=== PATIENT | male | born 1995 | race African-American/Black ===

== ENCOUNTER 2018-09-13 17:58 | Emergency (ER) | payer OTHER ==
[2018-09-13 18:02] VITALS: BP 124/81
== END 2018-09-13 20:23 | disposition left against medical advice (07) ==
LOC: ED 17:58
DX: R51 Headache (principal); Z53.21 Procedure and treatment not carried out due to patient leaving prior to being seen by health care provider

== ENCOUNTER 2019-01-20 19:51 | Emergency (ER) | payer OTHER ==
[2019-01-20 20:50] LABS: ABS Basophils 0.1 10^3/ul (0-0.2); ABS Eosinophils 0.1 10^3/ul (0-0.6); ABS Lymphocytes 2.5 10^3/ul (1.0-4.8); Eosinophil % 1.5 %; Hematocrit 46 % (42-52); Hemoglobin 15.1 g/dL (14.0-18.0); Lymphocyte % 28.7 %; Mean Corpuscular HGB Conc 33 g/dL (31-36); Mean Corpuscular Hemoglobin 27 pg (27-31); Mean Corpuscular Volume 84 fL (80-94); Mean Platelet Volume 8.5 fL (7.4-10.4); Nucleated Red Blood Cells % 0.1; Platelet Count 247 10^3/uL (150-450); Red Blood Count 5.53 10^6 /uL (4.18-5.48); Red Cell Distribution Width 14 % (10-15); White Blood Count 8.7 10^3/uL (3.5-10.8)
[2019-01-20 21:08] LABS: Albumin 4.1 g/dL (3.2-5.2); Albumin/Globulin Ratio 1.3 (1-3); BUN/Creatinine Ratio 16.8 (8-20); Calcium 9.3 mg/dL (8.6-10.3); EGFR African American 104.6 (>60); EGFR Non-African American 86.4 (>60); Globulin 3.1 g/dL (2-4); Potassium 4.3 mmol/L (3.5-5.0); Total Bilirubin 0.5 mg/dL (0.2-1.0); Total Protein 7.2 g/dL (6.4-8.9)
[2019-01-20] MEDS ORDERED: Sulfamethox/Trimethoprim DS 800/160* TAB PO ONE (22:30)
[2019-01-20] MEDS ORDERED: Ibuprofen TAB* 600 MG PO ONE (22:30)
--- NOTE | 2019-01-20 22:33 | ED ---
GI/ HPI - HPI Summary HPI Summary: This patient is a 23 year old M presenting to ED with a chief complaint of pain in groin since 2 days ago. The pain is described as burning. The patient rates the pain 10/10 in severity. Symptoms aggravated by nothing. Symptoms alleviated by Ibuprofen. Patient denies penile discharge, fever. - History of Current Complaint Chief Complaint: EDUrogenitalProblems Stated Complaint: PELVIS AREA PAIN PER PT Hx Obtained From: Patient Onset/Duration: Started Days Ago - 2 days ago, Still Present Timing: Constant, Lasting Days Severity: Severe Current Severity: Severe Pain Intensity: 10 Location of Pain: Groin Additional Locations for Males: Penis Pain Characteristics: Burning Associated Signs and Symptoms: Negative: Discharge, Fever Additional Signs & Symptoms: Negative: Penile Discharge Aggravating Factor(s): Nothing Alleviating Factor(s): Medication - Ibuprofen - Allergy/Home Medications Allergies/Adverse Reactions: Allergies Allergy/AdvReac Type Severity Reaction Status Date / Time No Known Allergies Allergy Verified 01/20/19 20:06 PMH/Surg Hx/FS Hx/Imm Hx Endocrine/Hematology History: Denies: Hx Diabetes Cardiovascular History: Denies: Hx Hypertension - Surgical History Surgery Procedure, Year, and Place: Denies Infectious Disease History: No Infectious Disease History: Denies: Traveled Outside the [place] in Last 30 Days - Family History Known Family History: Positive: Diabetes - Social History Alcohol Use: None Hx Substance Use: No Substance Use Type: Reports: Marijuana Hx Tobacco Use: No Smoking Status (MU): Never Smoked Tobacco Review of Systems Negative: Fever Positive: Abdominal Pain - Pelvic region Negative: discharge All Other Systems Reviewed And Are Negative: Yes Physical Exam - Summary Physical Exam Summary: Appearance: Well appearing, no pain distress Skin: warm, dry, reflects adequate perfusion Head/face: normal Eyes: EOMI, SHARIFA ENT: normal Neck: supple, non-tender Respiratory: CTA, breath sounds present Cardiovascular: RRR, pulses symmetrical Abdomen: tenderness and swelling over right pelvic area, no fluctuation, [id number] induration Musculoskeletal: normal, strength/ROM intact Neuro: normal, sensory motor intact, A&Ox3 Triage Information Reviewed: Yes Vital Signs On Initial Exam: Initial Vitals Temp Pulse Resp BP Pulse Ox 97.8 F 61 16 138/96 99 01/20/19 20:05 01/20/19 20:05 01/20/19 20:05 01/20/19 20:05 01/20/19 20:05 Vital Signs Reviewed: Yes Diagnostics - Vital Signs Vital Signs Temp Pulse Resp BP Pulse Ox 01/20/19 20:05 97.8 F 61 16 138/96 99 - Laboratory Lab Results: Lab Results 01/20/19 01/20/19 Range/Units 20:46 20:46 WBC 8.7 (3.5-10.8) 10^3/uL RBC 5.53 H (4.18-5.48) 10^6 /uL Hgb 15.1 (14.0-18.0) g/dL Hct 46 (42-52) % MCV 84 (80-94) fL MCH 27 (27-31) pg MCHC 33 (31-36) g/dL RDW 14 (10-15) % Plt Count 247 (150-450) 10^3/uL MPV 8.5 (7.4-10.4) fL Neut % (Auto) 57.0 % Lymph % (Auto) 28.7 % [place] % (Auto) 12.0 % Eos % (Auto) 1.5 % Baso % (Auto) 0.8 % Absolute Neuts (auto) 5.0 (1.5-7.7) 10^3/ul Absolute Lymphs (auto) 2.5 (1.0-4.8) 10^3/ul Absolute Monos (auto) 1.0 H (0-0.8) 10^3/ul Absolute Eos (auto) 0.1 (0-0.6) 10^3/ul Absolute Basos (auto) 0.1 (0-0.2) 10^3/ul Absolute Nucleated RBC 0.0 10^3/ul Nucleated RBC % 0.1 Sodium 142 (135-145) mmol/L Potassium 4.3 (3.5-5.0) mmol/L Chloride 109 (101-111) mmol/L Carbon Dioxide 29 (22-32) mmol/L Anion Gap 4 (2-11) mmol/L BUN 18 (6-24) mg/dL Creatinine 1.07 (0.67-1.17) mg/dL Est GFR ( Amer) 104.6 (>60) Est GFR (Non-Af Amer) 86.4 (>60) BUN/Creatinine Ratio 16.8 (8-20) Glucose 102 H (70-100) mg/dL Calcium 9.3 (8.6-10.3) mg/dL Total Bilirubin 0.50 (0.2-1.0) mg/dL AST 13 (13-39) U/L ALT 9 (7-52) U/L Alkaline Phosphatase 52 (34-104) U/L Total Protein 7.2 (6.4-8.9) g/dL Albumin 4.1 (3.2-5.2) g/dL Globulin 3.1 (2-4) g/dL Albumin/Globulin Ratio 1.3 (1-3) Lipase 22 (11.0-82.0) U/L Result Diagrams: 01/20/19 20:46 01/20/19 20:46 Lab Statement: Any lab studies that have been ordered have been reviewed, and results considered in the medical decision making process. GIGU Course/Dx - Course Course Of Treatment: This patient is a 23 year old M presenting to ED with a chief complaint of pain in groin since 2 days ago. In the ED course, patient received Motrin and Bactrim. Patient will be discharged with dx of folliculitis. Patient understands and agrees with this plan. - Diagnoses Provider Diagnoses: Folliculitis Discharge - Sign-Out/Discharge Documenting (check all that apply): Patient Departure - Discharge Patient Received Moderate/Deep Sedation with Procedure: No - Discharge Plan Condition: Stable Disposition: HOME Prescriptions: Ibuprofen TAB* [Motrin TAB* 600 MG] 600 mg PO Q8H PRN #20 tab MDD 3 PRN Reason: Pain Sulfamethox/Trimethoprim DS* [Bactrim DS 800/160 TAB*] 1 tab PO BID #20 tab Patient Education Materials: Folliculitis (ED) Referrals: [facility] [Outside] - 3 Days Camilo Greene MD [Medical Doctor] - 3 Days Additional Instructions: Follow-up with your primary care provider and Dr. Greene (surgeon) in three days. RETURN TO THE ER FOR WORSENING OR CHANGING SYMPTOMS IF YOU DO NOT IMPROVE IN TWO DAYS AFTER TAKING ANTIBIOTICS. - Attestation Statements Document Initiated by Scribe: Yes Documenting Scribe: Tyler King Provider For Whom Scribe is Documenting (Include Credential): Semaj Tovar MD Scribe Attestation: ITyler, scribed for Semaj Tovar MD on 01/20/19 at 2237. Status of Scribe Document: Ready
[2019-01-20 22:52] VITALS: BP 134/91
== END 2019-01-20 22:51 | disposition home or self-care (01) ==
LOC: ED 19:51
DX: L73.9 Follicular disorder, unspecified (principal)
CPT/HCPCS: 36415; 80053; 83690; 85025; 99282; A9270-GY

== ENCOUNTER 2019-01-22 09:30 | Emergency (ER) | payer OTHER ==
[2019-01-22] MEDS ORDERED: Morphine 4 MG/ML VIAL (1 ml) 4 MG/ML VIAL IV ONE (10:32)
[2019-01-22] MEDS ORDERED: cefTRIAXone(*) 2 GM in NS 0.9% 100 ML* 100 ML IVPB ONE (10:33)
--- NOTE | 2019-01-22 13:33 | ED ---
Skin Complaint - HPI Summary HPI Summary: Patient is a 23-year-old male who presents to the ED with right-sided scrotal tenderness, swelling and erythema. He was diagnosed with scrotal abscess 2 days ago and was given Bactrim. This was not drained at this time. He states he was to take the Bactrim and to return in 48 hours if the symptoms did not improve or worsen. She denies any fevers, sweats, chills. He does endorse a recent tooth abscess which she feels may be contributory. He is otherwise healthy and takes no medications. He has also been on ibuprofen for this 2 days. Continues to be able to urinate without difficulty, no history or chance of STDs and denies any pain to the anal/rectal region. - History of Current Complaint Chief Complaint: EDRashSkinAbscess Time Seen by Provider: 01/22/19 09:59 Stated Complaint: GROIN PAIN PER PT Hx Obtained From: Patient Onset/Duration: Started Hours Ago Skin Exposure Onset/Duration: Hours Ago Timing: Constant Onset Severity: Severe Current Severity: Severe Pain Intensity: 10 Pain Scale Used: 0-10 Numeric Skin Location: Discrete - right hemiscrotum Aggravating Symptom(s): Nothing Alleviating Symptom(s): Nothing Associated Signs & Symptoms: Negative - Allergy/Home Medications Allergies/Adverse Reactions: Allergies Allergy/AdvReac Type Severity Reaction Status Date / Time No Known Allergies Allergy Verified 01/22/19 09:40 PMH/Surg Hx/FS Hx/Imm Hx Previously Healthy: Yes Endocrine/Hematology History: Denies: Hx Diabetes Cardiovascular History: Denies: Hx Hypertension - Surgical History Surgery Procedure, Year, and Place: Denies - Immunization History Hx Pertussis Vaccination: No Immunizations Up to Date: Yes Infectious Disease History: No Infectious Disease History: Denies: Traveled Outside the [place] in Last 30 Days - Family History Known Family History: Positive: Diabetes - Social History Occupation: Unemployed Lives: With Family Alcohol Use: None Hx Substance Use: No Substance Use Type: Reports: Marijuana Hx Tobacco Use: No Smoking Status (MU): Never Smoked Tobacco Review of Systems Constitutional: Negative Negative: Fever, Chills, Fatigue, Skin Diaphoresis Negative: Palpitations, Chest Pain Negative: Shortness Of Breath, Cough Genitourinary: Negative Positive: no symptoms reported, see HPI Negative: Arthralgia, Myalgia Skin: Negative Positive: Other - 4x2 erythematous large fluid collection in the R scrotal region without involvment of the penis or perianal region All Other Systems Reviewed And Are Negative: Yes Physical Exam Triage Information Reviewed: Yes Vital Signs On Initial Exam: Initial Vitals Temp Pulse Resp BP Pulse Ox 99 F 96 16 135/90 95 01/22/19 09:36 01/22/19 09:36 01/22/19 09:36 01/22/19 09:36 01/22/19 09:36 Vital Signs Reviewed: Yes Appearance: Positive: Well-Appearing, Well-Nourished Skin: Positive: Warm, Skin Color Reflects Adequate Perfusion Head/Face: Positive: Normal Head/Face Inspection Eyes: Positive: EOMI, Conjunctiva Clear Neck: Positive: Supple, No Lymphadenopathy Respiratory/Lung Sounds: Positive: Clear to Auscultation, Breath Sounds Present Cardiovascular: Positive: RRR, Pulses are Symmetrical in both Upper and Lower Extremities Male Genital Exam: Positive: Normal Genitalia, No Hernia, Scrotum Tenderness (R) , Other - 4x2 erythematous large fluid collection in the R scrotal region without involvment of the penis or perianal region. Negative: Epididymal Tenderness, Inguinal Tenderness, Lesions, Scrotum Tenderness (L), Testicular Tenderness (R), Testicular Tenderness (L), Urethral Discharge Musculoskeletal: Positive: Strength/ROM Intact Neurological: Positive: Sensory/Motor Intact, Alert, Oriented to Person Place, Time, Speech Normal Psychiatric: Positive: Affect/Mood Appropriate AVPU Assessment: Alert Procedures - Incision and Drainage scrotal abscess Anesthesia: Local Instrument(s): Scalpel, Needle Packing: Gauze Diagnostics - Vital Signs Vital Signs Temp Pulse Resp BP Pulse Ox 01/22/19 10:45 18 01/22/19 09:36 99 F 96 16 135/90 95 - Laboratory Lab Statement: Any lab studies that have been ordered have been reviewed, and results considered in the medical decision making process. Course/Dx - Course Course Of Treatment: On physical examination, there is approximately a 4 cm x 2 cm fluid collection to the right hemiscrotum. This is not involving the testicle. Swelling, erythema and significant tenderness on light palpation. Soft tissue/testicular ultrasound obtained which is complex fluid collection in the right hemiscrotum in the area of clinical abnormality. The imaging appearance is concerning for abscess in the correct clinical setting. This measures up to 4 cm. 4 x 1.9 x 1.8 cm in size. 2 mL lidocaine without epi used as local anesthetic into the subcutaneous space just superior to the testicle and over the hemiscrotum. This with good effect. 18-gauge needle used for puncture with good return of purulent drainage. Using a 20-gauge blade , a small 0.4 cm incision was made with copious amounts of purulent drainage. Painful, however patient tolerated well. Wound culture obtained and sent to lab. We will await results. 07/27 iodoform gauze packed with 1 cm in length. Patient tolerated well. Gauze applied and telfa dressing applied. He has 8 days left of Bactrim and he will remain on this. He will return immediately if he develops any worsening symptoms, however he is instructed to remove the gauze in 2 days if this is not been already removed spontaneously. He agrees with this plan and is okay for discharge at this time. - Diagnoses Provider Diagnoses: Scrotal wall abscess Discharge - Sign-Out/Discharge Documenting (check all that apply): Patient Departure Patient Received Moderate/Deep Sedation with Procedure: No - Discharge Plan Condition: Stable Disposition: HOME Patient Education Materials: Abscess (ED) Referrals: No Primary Care Phys,NOPCP [Primary Care Provider] - Chandler López MD [Medical Doctor] - Additional Instructions: PLease follow up with urology if you develop worsening symptoms Continue to take the Bactrim twice daily Warm compresses to the area as much as possible The bandage can be changed daily if this area bleeds through, you may change the bandage Return to the ED if you continue with bleeding or worsening pain or symptoms - Billing Disposition and Condition Condition: STABLE Disposition: Home
[2019-01-22 14:35] VITALS: BP 128/85
--- NOTE | 2019-01-26 18:07 | ED ---
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 Given the location of the infection, called pt to inquire about his progress on bactrim - no answer so LMTC. Will also mail letter to follow-up with the lab here. Spoke with Juan Antonio in the microbiology to request sensitivities be performed. He agrees w/ plan and will run for both organisms. If pt returns call and is not improving, would switch to clindamycin in the meantime to better cover organism. althea Landry clerk, aware. Course/Dx - Course Course Of Treatment: On physical examination, there is approximately a 4 cm x 2 cm fluid collection to the right hemiscrotum. This is not involving the testicle. Swelling, erythema and significant tenderness on light palpation. Soft tissue/testicular ultrasound obtained which is complex fluid collection in the right hemiscrotum in the area of clinical abnormality. The imaging appearance is concerning for abscess in the correct clinical setting. This measures up to 4 cm. 4 x 1.9 x 1.8 cm in size. 2 mL lidocaine without epi used as local anesthetic into the subcutaneous space just superior to the testicle and over the hemiscrotum. This with good effect. 18-gauge needle used for puncture with good return of purulent drainage. Using a 20-gauge blade , a small 0.4 cm incision was made with copious amounts of purulent drainage. Painful, however patient tolerated well. Wound culture obtained and sent to lab. We will await results. 1/4 iodoform gauze packed with 1 cm in length. Patient tolerated well. Gauze applied and telfa dressing applied. He has 8 days left of Bactrim and he will remain on this. He will return immediately if he develops any worsening symptoms, however he is instructed to remove the gauze in 2 days if this is not been already removed spontaneously. He agrees with this plan and is okay for discharge at this time. - Diagnoses Provider Diagnoses: Scrotal wall abscess Discharge - Sign-Out/Discharge Documenting (check all that apply): Post-Discharge Follow Up Patient Received Moderate/Deep Sedation with Procedure: No - Discharge Plan Condition: Stable Disposition: HOME Patient Education Materials: Abscess (ED) Referrals: No Primary Care Phys,NOPCP [Primary Care Provider] - Chandler López MD [Medical Doctor] - Additional Instructions: PLease follow up with urology if you develop worsening symptoms Continue to take the Bactrim twice daily Warm compresses to the area as much as possible The bandage can be changed daily if this area bleeds through, you may change the bandage Return to the ED if you continue with bleeding or worsening pain or symptoms - Billing Disposition and Condition Condition: STABLE Disposition: Home
== END 2019-01-22 14:34 | disposition home or self-care (01) ==
LOC: ED 09:30
DX: N49.2 Inflammatory disorders of scrotum (principal)
CPT/HCPCS: 10060; 87070; 87076; 87181; 87205; 87640; 87641; 96365; 96375; 99282; J0696; J2270